=== PATIENT | female | born 1975 | race Caucasian/White ===

== ENCOUNTER 2022-03-01 01:12 | Day surgery (SDC) | payer OTHER, SELFPAY ==
[2022-02-22 13:45] VITALS: BMI 25.2
--- NOTE | 2022-02-27 15:02 | PM.HPGS ---
History of Present Illness History of Present Illness Consent: Risks, benefits, and alternatives have been discussed and questions answered. Patient agrees to proceed with procedure. Chief complaint: neoplasm screening Narrative: Dominga Lawson is a 47 year old female referred for colon cancer screening. [facility] Past Medical History Medical History Abnormal Pap smear of cervix ? 2000; 06/28/14 (+) HPV Anemia as child HPV in female Miscarriage (01/29/07) Screening mammogram, encounter for Vaginal delivery 09/24/04 06/20/08 Surgical History Surgical History History of colposcopy with cervical biopsy (~2000) no treatment History of dilation and curettage 01/29/07 suction d&c--incomplete AB History of removal of skin mole History of tonsillectomy and adenoidectomy Family History Family History Mother Diabetes mellitus Sibling Diabetes mellitus brother Grandparent Carcinoma of colon maternal grandfather Father Hypertension Other Ovarian cancer Social History Social History Smoking status: Never smoker Alcohol intake: current Alcohol use details: few drinks per month Substance use: never Substance use type: does not use Additional living arrangements comments: Additional occupation/education comments: seasonal clerk at the [employer] Gender identity (if verbalized by the patient): Female Sexual Orientation (if Verbalized by the Patient): Straight or Heterosexual Spiritual care concerns: No Meds Home Medications and Allergies Home Medications Medication Instructions Recorded Confirmed Type No Home Medications 02/13/22 03/01/22 History Allergies Allergy/AdvReac Type Severity Reaction Status Date / Time clarithromycin [From Biaxin] Allergy Unknown Sweating Verified 03/01/22 07:30 Assessment and Plan Assessment and plan (1) Colon cancer screening: Code(s): Z12.11 - Encounter for screening for malignant neoplasm of colon Status: Acute Assessment and Plan: Colonoscopy with possible biopsy or polypectomy or cautery or injection of substances.
[2022-03-01 07:31] VITALS: BP 116/80; PULSE 66; RESP 16; TEMP 36.3; O2SAT 100
[2022-03-01] MEDS: LACTATED RINGERS 1,000 ML 150 ML IV CONT (07:40)
--- NOTE | 2022-03-01 07:45 | P.PNAN_ITS ---
Anes - Initial Pre Proc Eval Procedure: Operation Date: 03/01/22 08:30 Proposed Procedures p Screening Colonoscopy - Bobo Martines MD Date/Time: 03/01/22 07:45 Surgeon: Bobo Martines MD Pre Op Diagnosis: neoplasm screening Patient Data Age: 47 Gender: F Height: 1.57 m Weight: 60.2 kg Last Vital Signs Temp 36.3 C L 03/01/22 07:31 Pulse 66 03/01/22 07:31 Resp 16 03/01/22 07:31 BP 116/80 03/01/22 07:31 Pulse Ox 100 03/01/22 07:31 O2 Del Method Room Air 03/01/22 07:31 Allergies Allergy/AdvReac Type Severity Reaction Status Date / Time clarithromycin [From Biaxin] Allergy Unknown Sweating Verified 03/01/22 07:30 Home Medications Medication Instructions Recorded Confirmed Type No Home Medications 02/13/22 03/01/22 History Patient hx anesthesia problems: none Family hx anesthesia problems: none Results Review: All pre-operative results and documents have been reviewed as part of the pre-operative evaluation. [facility] Past Medical History Medical History Abnormal Pap smear of cervix ? 2000; 06/28/14 (+) HPV Anemia as child HPV in female Miscarriage (01/29/07) Screening mammogram, encounter for Vaginal delivery 09/24/04 06/20/08 Surgical History Surgical History History of colposcopy with cervical biopsy (~2000) no treatment History of dilation and curettage 01/29/07 suction d&c--incomplete AB History of removal of skin mole History of tonsillectomy and adenoidectomy Family History Family History Mother Diabetes mellitus Sibling Diabetes mellitus brother Grandparent Carcinoma of colon maternal grandfather Father Hypertension Other Ovarian cancer Social History Social History Smoking status: Never smoker Alcohol intake: current Alcohol use details: few drinks per month Substance use: never Substance use type: does not use Additional living arrangements comments: Additional occupation/education comments: motor lodge clerk at [employer] Gender identity (if verbalized by the patient): Female Sexual Orientation (if Verbalized by the Patient): Straight or Heterosexual Spiritual care concerns: No Anes - Eval Final PreProcedure Day of Procedure 03/01/22 07:45 Patient weight: normal Heart: regular rate and rhythm Lungs: clear to auscultation Airway: Mallampati scale class II Neurological: alert and oriented Last oral intake: >/= 8 hours ASA classification: I Emergent: no Anesthetic plan: proceed Anesthesia type and monitoring: general GIVS and standard monitoring Results Review: All pre-operative results and documents have been reviewed as part of the pre- operative evaluation. Informed Consent: The patient's anesthetic plan and its attendant risks and benefits were discussed with the patient/family/POA. Questions were solicited and answers provided to the satisfaction of the patient/family/POA.
[2022-03-01 08:27] VITALS: BP 93/53; PULSE 74; RESP 16; O2SAT 95
[2022-03-01 08:37] VITALS: BP 90/53; PULSE 70; RESP 16; O2SAT 100
[2022-03-01 08:44] VITALS: BP 118/79; PULSE 69; RESP 16; O2SAT 100
== END 2022-03-01 09:00 | disposition home or self-care (01) ==
PROVIDERS: PCP Internal Medicine; Visit Provider Internal Medicine Gastroenterology
PROC: 0DJD8ZZ Inspection of Lower Intestinal Tract, Via Natural or Artificial Opening Endoscopic (ICD-10-PCS; CPT 45378; principal; 2022-03-01 08:30)
DX: Z12.11 Encounter for screening for malignant neoplasm of colon (principal); K57.30 Diverticulosis of large intestine without perforation or abscess without bleeding
CPT/HCPCS: 45378; J2704; J7120

== ENCOUNTER 2024-09-04 09:39 | Outpatient (CLI) | payer OTHER, SELFPAY ==
--- NOTE | ~2024-09-04 | MM_ITS ---
EXAMINATION: MM screening anton BI w shakeel HISTORY: Screening TECHNIQUE: Craniocaudal and mediolateral oblique 3-D tomosynthesis images were obtained and synthetic 2-D images were generated. CAD analysis was submitted and interpreted. COMPARISON: No prior mammogram is available for comparison at this institution. BREAST PARENCHYMAL COMPOSITION: Dense: The breasts are heterogeneously dense, which may obscure small masses FINDINGS: There is a 1 cm mass in the lower central aspect of the left breast, middle third. There ar e no suspicious masses, calcifications or architectural distortion in the right breast to suggest mal ignancy. IMPRESSION: 1. Left breast mass measuring 1 cm in the lower central left breast, middle third. 2. Additional mammographic views and possible breast ultrasound are recommended. BI-RADS Category 0: Incomplete: Needs additional imaging evaluation. Reviewed, dictated and finalized at location B. IMPRESSION: 1. Left breast mass measuring 1 cm in the lower central left breast, middle thi rd. 2. Additional mammographic views and possible breast ultrasound are recommended . BI-RADS Category 0: Incomplete: Needs additional imaging evaluation.
== END 2024-09-04 09:40 | disposition home or self-care (01) ==
LOC: ANHIMG 09:40
PROVIDERS: PCP Internal Medicine; Visit Provider Obstetrics & Gynecology
DX: Z12.31 Encounter for screening mammogram for malignant neoplasm of breast (principal); R92.8 Other abnormal and inconclusive findings on diagnostic imaging of breast
CPT/HCPCS: 77063; 77067

== ENCOUNTER 2024-09-22 10:55 | Outpatient (CLI) | payer OTHER, SELFPAY ==
--- NOTE | ~2024-09-22 | US_ITS ---
Examination: MM diagnostic SUDHIR LT W shakeel, US breast LT limited INDICATION: 46-year old female; BI-RADS 0, left breast small mass COMPARISON: 09/04/2024 TECHNIQUE: Digital breast tomosynthesis True lateral and spot compression CC and MLO views of the LEF T breast were obtained with computer-aided detection to assist in interpretation of the study. FINDINGS: The breasts are heterogeneously dense, which may obscure small masses. A circumscribed mass persists in inferior central location. Ultrasound was performed for further eval uation. LEFT BREAST ULTRASOUND FINDINGS: Targeted evaluation of the area of concern was completed. There is a 0.9 x 0.4 x 0.9 cm anechoic circ umscribed mass at 6:00 location 2 cm from the nipple in the LEFT breast that correlates to the area o f Mammographic finding. IMPRESSION: Benign LEFT breast simple cyst correlates to mammographic finding. No further investigation necessary . RECOMMENDATION: ANNUAL SCREENING BILATERAL MAMMOGRAPHY BI-RADS 2, BENIGN Reviewed, dictated and finalized at location B. IMPRESSION: Benign LEFT breast simple cyst correlates to mammographic finding. No further i nvestigation necessary. RECOMMENDATION: ANNUAL SCREENING BILATERAL MAMMOGRAPHY BI-RADS 2, BENIGN
== END 2024-09-22 10:56 | disposition home or self-care (01) ==
LOC: ANHIMG 11:00
PROVIDERS: PCP Internal Medicine; Visit Provider Obstetrics & Gynecology
DX: N60.02 Solitary cyst of left breast (principal)
CPT/HCPCS: 76642; 77061; 77065; G0279